=== PATIENT | female | born 2000 | race Caucasian/White ===

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

== ENCOUNTER 2020-08-03 23:33 | Emergency (ER) | payer BC ==
[2020-08-04] MEDS ORDERED: Acetaminophen 500 MG Tab PO ONE (00:02)
--- NOTE | 2020-08-04 00:04 | EDM.PDOC ---
ED HPI GENERAL MEDICAL PROBLEM - General Chief Complaint: ENT Problem Stated Complaint: SORE TROAT Time Seen by Provider: 08/03/20 23:36 Source of Information: Reports: Patient History Limitations: Reports: No Limitations - History of Present Illness INITIAL COMMENTS - FREE TEXT/NARRATIVE: This is a very pleasant 20-year-old female with no pertinent past medical history presenting with infectious symptoms. She reports a 4 to 5-day history of sore throat, nonproductive cough, and occasional mucus production. She has had positive contact with patients that have COVID-19 infection. Denies any fever, chills, chest pain, shortness of breath, hemoptysis, neck stiffness, abdominal pain, diarrhea, difficulty handling secretions or drinking fluids. She is intermittently taking ibuprofen and cough syrup. Sore throat worsened this evening, which prompted her presentation to the emergency department. Past medical history: Reviewed, no additional pertinent history. Surgical history: Reviewed in system, no additional pertinent history. Social history: Reviewed in system, no additional pertinent history. Family history: Reviewed in system, no additional pertinent history. Limited physical examination was performed due to COVID pandemic, distanced physical examination to prevent physician exposure and to preserve PPE. Vital signs reviewed. Nursing notes reviewed. Constitutional: Awake, alert, non-distressed. Head: Normocephalic, atraumatic. Eyes: No scleral icterus. ENT: Uvula midline, tonsils are surgically absent, no palatal petechiae or erythema, no tongue elevation Neck: Able to fully flex and extend. Fully rotates side to side. Cardiovascular: No extremity edema. Pulmonary: normal work of breathing, no accessory muscle use. Speaking in full sentences, handling secretions well. Abdomen/GI: nondistended Musculoskeletal: No deformities. Integumentary: Appropriate color for ethnicity, warm, dry, no pallor or jaundice, no rash. Neurologic: Alert, answering questions appropriately, normal speech, no facial droop, moving all extremities well. Normal voice. Psychiatric: Appropriate mood and affect, normal thought process. This patient was seen and evaluated during the 2019 SARS-CoV-2 novel coronavirus pandemic period. Community viral transmission is ongoing at time of this encounter and widespread universal testing is not currently available in our emergency department. Throat Pain Score (Numeric/FACES): 8 - Related Data Allergies Allergy/AdvReac Type Severity Reaction Status Date / Time No Known Allergies Allergy Verified 08/03/20 23:40 Home Meds: Home Meds . [No Known Home Meds] 08/25/17 [History] Past Medical History HEENT History: Reports: None Cardiovascular History: Reports: None Respiratory History: Reports: Asthma Gastrointestinal History: Reports: None Genitourinary History: Reports: None Neurological History: Reports: None Psychiatric History: Reports: Depression Endocrine/Metabolic History: Reports: None - Infectious Disease History Infectious Disease History: Reports: None - Past Surgical History HEENT Surgical History: Reports: Tonsillectomy Social & Family History - Family History Family Medical History: No Pertinent Family History - Tobacco Use Tobacco Use Status *Q: Current Every Day Tobacco User Years of Tobacco use: 3 Packs/Tins Daily: 0.5 - Caffeine Use Caffeine Use: Reports: Coffee - Recreational Drug Use Recreational Drug Use: Yes Recreational Drug Type: Reports: Marijuana/Hashish Recreational Drug Use Frequency: Daily ED ROS GENERAL - Review of Systems Review Of Systems: See Below ED EXAM, GENERAL - Physical Exam Exam: See Below Course - Vital Signs Text/Narrative:: 20-year-old female with cough, sore throat, mucus production. COVID-19 infection versus viral URI. Neck is supple, low suspicion for meningitis. Afebrile, no shortness of breath to suggest pneumonia. Does not look toxic or septic. Will administer Tylenol and obtain a rapid Covid test. 1:07 AM: COVID-19 testing is negative. Presentation is consistent with a viral upper respiratory illness. I did discuss with the patient the limitations of the sensitivity of the COVID-19 PCR including possibility of false negative. We discussed isolation at home given viral upper respiratory illness and discussed symptomatic treatment [id number] medications recommended primary care follow-up. Discussed ED return precautions and patient voiced understanding. All questions answered prior to being discharged in good condition. Last Recorded V/S: Last Vital Signs Temp 36.3 C 08/03/20 23:40 Pulse 79 08/03/20 23:40 Resp 16 12/17/20 23:40 BP 131/79 08/03/20 23:40 Pulse Ox 96 08/03/20 23:40 - Orders/Labs/Meds Labs: Laboratory Tests 08/04/20 Range/Units 00:10 SARS-CoV-2 RNA (DAMON) NEGATIVE (NEGATIVE) Meds: Medications Discontinued Medications Generic Name Dose Route Start Last Admin Trade Name Mounika PRN Reason Stop Dose Admin Acetaminophen 1,000 mg 08/04/20 00:02 08/04/20 00:07 Tylenol Extra Strength PO 08/04/20 00:03 1,000 mg ONETIME ONE Administration Departure - Departure Time of Disposition: 01:07 Disposition: Home, Self-Care 01 Condition: Good Clinical Impression: Viral URI with cough, Encounter for laboratory testing for COVID-19 virus - Discharge Information *PRESCRIPTION DRUG MONITORING PROGRAM REVIEWED*: Not Applicable *COPY OF PRESCRIPTION DRUG MONITORING REPORT IN PATIENT CHARISMA: Not Applicable Instructions: Viral Respiratory Infection, [id number] Referrals: Erma Dixon CPO [Primary Care Provider] - 1 Week (As needed for follow-up of symptoms.) Forms: ED Department Discharge Additional Instructions: You were seen in the emergency department for a viral upper respiratory illness. Your COVID-19 test was negative, but it is only about 85% accurate at detecting a positive infection so it is possible that you actually have COVID-19 but the test is falsely negative today. You need to stay home from work or school and isolate from others as much as possible. You need to wear a mask or face covering and you should cover your cough or sneeze. Wash your hands frequently. Try to isolate yourself from family members or others as much as you can. You may develop new symptoms such as a headache, sore throat, cough, sneezing, nasal congestion or drainage, chest congestion, nausea, vomiting, diarrhea, body aches, or chills. These are not unusual. You can take any standard [id number] medications for cold or flu type symptoms including fever reducing medications (acetaminophen or ibuprofen), cough medications (Robitussin, cough drops or lozenges), or medications like TheraFlu or DayQuil/NyQuil. Be sure you are drinking plenty of fluids. Warning signs to come back to the emergency department include shortness of breath, chest pain, lightheadedness, loss of consciousness, if you are unable to swallow or handle drinking fluids, or if you have any other new and concerning symptoms. Please return the emergency department immediately if your symptoms worsen or if you feel worse. Thank you for choosing the [facility] emergency department in [place] for your medical needs today. It was a pleasure caring for you. The following information is given to patients seen in the emergency department who are being discharged. This information is to outline your options for follow-up care. We provide all patients seen in our emergency department with a follow-up referral. The need for follow-up, as well as the timing and circumstances, are variable de pending upon the specifics of your emergency department visit. If you don't have a primary care physician on staff, we will provide you with a referral. We always advise you to contact your personal physician following an emergency department visit to inform them of the circumstance of the visit and for follow-up with them and/or the need for any referrals to a consulting specialist. The emergency department will also refer you to a specialist when appropriate. This referral assures that you have the opportunity for follow-up care with a specialist. All of these measure are taken in an effort to provide you with optimal care, which includes your follow-up. Under all circumstances we always encourage you to contact your private physician who remains a resource for coordinating your care. When calling for follow-up care, please make the office aware that this follow-up is from your recent emergency room visit. If for any reason you are refused follow-up, please contact the [facility] Emergency Department at and asked to speak to the emergency department charge nurse. If you do not have a primary care physician that is caring for you, you can contact these clinics below to set up an appointment to establish care: [facility] - [facility] [address] [place] [id number] [address] [place] [address] Sepsis Event Note (ED) - Evaluation Sepsis Screening Result: No Definite Risk - Focused Exam Vital Signs: Vital Signs Temp Pulse Resp BP Pulse Ox 08/03/20 23:40 36.3 C 79 16 131/79 96
--- NOTE | 2020-08-05 20:28 | PCM.SN.2 ---
- Free Text/Narrative Note: Performed routine telephone follow-up, patient has no concerns or questions and is doing well.
== END 2020-08-04 01:15 | disposition home or self-care (01) ==
LOC: MW.ED 23:33
DX: J06.9 Acute upper respiratory infection, unspecified (principal); J45.909 Unspecified asthma, uncomplicated; F17.210 Nicotine dependence, cigarettes, uncomplicated; Z20.828 Contact with and (suspected) exposure to other viral communicable diseases
CPT/HCPCS: 87635; 99283; A9270; 99282; U0002